=== PATIENT | male | born 1940 | race Two or more races ===

== ENCOUNTER 2022-12-12 08:17 | Inpatient (IN) | payer OTHER ==
[~2022-12-12] VITALS: Ht 172.7 cm; Wt 81.6 kg
[2022-12-12] MEDS ORDERED: SIMVASTATIN80 MG PO (08:40)
[2022-12-12] MEDS ORDERED: LOSARTAN POTAS100 MG (08:40)
[2022-12-12 09:54] LABS: INR 1.04; PARTIAL THROMBOPLASTIN TIME 32.9 SECONDS (22.0-34.0); PROTHROMBIN TIME 10.9 SECONDS (9.0-11.5)
[2022-12-12 10:03] LABS: ALBUMIN 3.5 gm/dL (3.4-5.0); BILIRUBIN TOTAL 1.03 mg/dL (0.3-1.2); CALCIUM 9.2 mg/dL (8.5-10.1); CREATININE SERUM 1.32 mg/dL (0.70-1.30); GFR 52.19; POTASSIUM 3.81 mEq/L (3.5-5.1); TOTAL PROTEIN 7.5 gm/dL (6.4-8.2)
[2022-12-12 10:04] LABS: HEMATOCRIT 42.3 % (39.0-48.0); MEAN CELL VOLUME 86.8 fL (80.0-100.00); MEAN CORPUSCULAR HEMOGLOBIN 28.8 pg (27.00-32.0); MEAN CORPUSCULAR HGB CONC 33.1 g/dl (32.0-36.0); RED BLOOD COUNT 4.87 M/uL (4.00-6.00)
[2022-12-12 10:16] LABS: MAGNESIUM 2.2 mg/dL (1.8-2.4)
[2022-12-12 10:27] LABS: URINE APPEARANCE Clear; URINE BILIRRUBIN Negative (NEGATIVE); URINE BLOOD Moderate; URINE COLOR Yellow; URINE GLUCOSE Negative (NEGATIVE); URINE LEUKOCYTE Negative; URINE NITRATE Negative; URINE UROBILINOGEN 0.2 E.U./dl
[2022-12-12 10:31] LABS: URINE EPITHELIAL CELLS 3.3 uL (0.0-38.8); URINE RBC 6.4 uL (0.0-20.8)
[2022-12-12 10:33] LABS: URINE BACTERIA 2.5 uL (0.0-1933); URINE PROTEIN 300 (NEGATIVE); URINE WBC 1.6 uL (0.0-23.2)
[2022-12-12 11:31] LABS: PLATELET COUNT 55 K/uL (150-450)
[2022-12-12 19:45] LABS: HEMATOCRIT 41.3 % (39.0-48.0); HEMOGLOBIN 14.3 g/dL (13-16.00); MEAN CELL VOLUME 85.4 fL (80.0-100.00); MEAN CORPUSCULAR HEMOGLOBIN 29.6 pg (27.00-32.0); MEAN CORPUSCULAR HGB CONC 34.6 g/dl (32.0-36.0); RED BLOOD COUNT 4.84 M/uL (4.00-6.00)
[2022-12-12 20:23] LABS: PLATELET COUNT 54 K/uL (150-450)
[2022-12-12 21:42] LABS: ERYTHROCYTE SEDIMENTATION RATE 13 mm/hr
[2022-12-12 22:06] LABS: ALBUMIN 3.3 gm/dL (3.4-5.0); BILIRUBIN TOTAL 0.88 mg/dL (0.3-1.2); BILIRUBIN,CONJUGATED 0.3 mg/dL (0.0-0.2); BILIRUBIN,UNCONJUGATED 0.58 mg/dL (0.0-0.6); TOTAL PROTEIN 7.4 gm/dL (6.4-8.2)
[2022-12-12 22:25] LABS: PLATELET COUNT 61 K/uL (150-450)
[2022-12-14 12:18] LABS: HEMATOCRIT 39.6 % (39.0-48.0); HEMOGLOBIN 13.4 g/dL (13-16.00); MEAN CELL VOLUME 86.3 fL (80.0-100.00); MEAN CORPUSCULAR HEMOGLOBIN 29.1 pg (27.00-32.0); MEAN CORPUSCULAR HGB CONC 33.8 g/dl (32.0-36.0); PLATELET COUNT 144 K/uL (150-450); RED CELL DISTRIBUTION WIDTH 15.8 % (11.5-14.5)
== END 2022-12-15 02:59 | disposition home or self-care (01) | DRG 866 ==
LOC: ER 08:17 → MEDI 21:19
PROVIDERS: General Practice; ADMIT Specialist; ATTEND Specialist
DX: A91 Dengue hemorrhagic fever (principal); D69.6 Thrombocytopenia, unspecified; E78.5 Hyperlipidemia, unspecified; I10 Essential (primary) hypertension; Z20.822 Contact with and (suspected) exposure to COVID-19